=== PATIENT | male | born 1950 | race Caucasian/White ===

== ENCOUNTER 2017-01-28 17:33 | Inpatient (IN) | payer OTHER, MEDICAID ==
--- NOTE | 2017-01-28 18:10 | EDPHY ---
H & P Stated Complaint: c/o sob. specialist told pt to call 911 Time Seen by Provider: 01/28/17 18:09 - Personal History Current Tetanus/Diphtheria Vaccine: Unsure Current Tetanus Diphtheria and Acellular Pertussis (TDAP): Unsure - Medical/Surgical History Hx Asthma: No Hx Chronic Respiratory Disease: No Hx Diabetes: No Hx Cardiac Disease: No Hx Renal Disease: No Hx Cirrhosis: No Hx Alcoholism: No Hx HIV/AIDS: No Hx Splenectomy or Spleen Trauma: No Other PMH: pmh: amalosis, - Social History Smoking Status: Never smoked Constitutional: Initial Vital Signs Temperature (C) 36.8 C 01/28/17 17:41 Heart Rate 88 01/28/17 17:41 Respiratory Rate 16 01/28/17 17:41 Blood Pressure 92/65 L 01/28/17 17:41 O2 Sat (%) 95 01/28/17 17:41 O2 Delivery Mode Room Air Allergies/Adverse Reactions: No Known Allergies Allergy (Unverified 01/28/17 17:45) Home Medications: Medication Instructions Recorded Benzonatate 200 mg PO TID 01/28/17 Bumetanide [Bumex (*)] 2 mg PO DAILY 01/28/17 Spironolactone 100 mg PO DAILY 01/28/17 Medical Decision Making - Diagnostics Imaging Results: Imaging Impressions Chest X-Ray 01/28/17 18:18 Impression: 1. Prominent interstitial markings at the lung bases. Consider interstitial edema possibly from fluid overload versus interstitial infiltrates or some fibrotic change. Clinical correlation recommended. Imaging: I viewed and interpreted images myself ED Course/Re-evaluation: CHIEF COMPLAINT: "shortness of breath due to excessive water build up" HISTORY OF PRESENT ILLNESS: The patient is a 67 y/o male, with a history of amyloidosis and ascites, complaining of shortness of breath and peripheral edema worsening over the last 2 days. He has associated chest pressure and his symptoms are aggravated by lying flat. He has had similar symptoms once this year that required hospitalization. He required IV Lasix at that time, but otherwise does not take Lasix regularly. He denies pain, cough, fever, or other complaints. REVIEW OF SYSTEMS: A 10 point review of systems was performed and is negative with the exception of the elements mentioned in the history of present illness. PHYSICAL EXAM: HR, BP, O2 Sat, RR. Temp noted General Appearance: Alert, well hydrated, appropriate, and non-toxic appearing. Head: Atraumatic without scalp tenderness or obvious injury Eyes: Pupils equal, round, reactive to light and accommodation, EOMI, no trauma , no injection. Nose: Atraumatic, no rhinorrhea, clear. Throat: Mucus membranes moist. Neck: Supple, nontender, no lymphadenopathy. Respiratory: No retractions, no distress, no wheezes, and no accessory muscle use. Lungs are clear to auscultation bilaterally. Cardiovascular: Regular rate and rhythm, no murmurs, rubs, or gallops. Good capillary refill all extremities. Gastrointestinal: Abdomen is soft, nontender, non-distended, no masses, no rebound, no guarding, no peritoneal signs. Musculoskeletal: Normal active ROM of all extremities, atraumatic. Pedal edema with chronic venous stasis changes. Neurological: Alert, appropriate, and interactive. Nonfocal neuro exam. Skin: No rashes, good turgor, no nodules on palpation. Past medical history: amyloidosis, ascites, pleural effusion. 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 Chico Ferrer at [facility] DIAGNOSTICS/PROCEDURES/CRITICAL CARE TIME: Chest x-ray: interstitial edema. The 12 lead EKG was interpreted by myself. Sinus mechanism rate 77. See hard copy and/or "tracemaster" electronic copy for interpretation. DIFFERENTIAL DIAGNOSIS: The differential diagnosis for the patient's shortness of breath and hypoxemia included but was not limited to pneumonia, myocardial infarction, acute mountain sickness, high altitude pulmonary edema, congestive heart failure, and pulmonary embolus. MEDICAL DECISION MAKING: This is a 67 y/o male with a history of amyloidosis who presents with a 2-day history of peripheral edema and worsening shortness of breath. He has mild pedal edema bilaterally and a normal lung exam. Plan for IV, labs, chest x-ray, EKG. BNP elevated at 3020. Macrocytic anemia present. Patient will require admission for CHF. Spoke with hospitalist service. Dr. Gutierrez accepts admission. - Data Points Laboratory Results: Laboratory Results 01/28/17 17:50 01/28/17 17:50 01/28/17 01/28/17 17:50 17:50 WBC 5.14 10^3/uL 10^3/uL (3.80-9.50) RBC 3.48 10^6/uL L 10^6/uL (4.40-6.38) Hgb 12.7 g/dL L g/dL (13.7-17.5) Hct 35.7 % L % (40.0-51.0) MCV 102.6 fL H fL (81.5-99.8) MCH 36.5 pg H pg (27.9-34.1) MCHC 35.6 g/dL g/dL (32.4-36.7) RDW 13.8 % % (11.5-15.2) Plt Count 152 10^3/uL 10^3/uL (150-400) MPV 10.5 fL fL (8.7-11.7) Neut % (Auto) 67.8 % % (39.3-74.2) Lymph % (Auto) 14.8 % L % (15.0-45.0) Towns % (Auto) 12.3 % % (4.5-13.0) Eos % (Auto) 3.7 % % (0.6-7.6) Baso % (Auto) 1.0 % % (0.3-1.7) Nucleat RBC Rel Count 0.0 % % (0.0-0.2) Absolute Neuts (auto) 3.49 10^3/uL 10^3/uL (1.70-6.50) Absolute Lymphs (auto) 0.76 10^3/uL L 10^3/uL (1.00-3.00) Absolute Monos (auto) 0.63 10^3/uL 10^3/uL (0.30-0.80) Absolute Eos (auto) 0.19 10^3/uL 10^3/uL (0.03-0.40) Absolute Basos (auto) 0.05 10^3/uL 10^3/uL (0.02-0.10) Absolute Nucleated RBC 0.00 10^3/uL 10^3/uL (0-0.01) Immature Gran % 0.4 % % (0.0-1.1) Immature Gran # 0.02 10^3/uL 10^3/uL (0.00-0.10) Sodium 136 mEq/L mEq/L (134-144) Potassium 4.5 mEq/L mEq/L (3.5-5.2) Chloride 104 mEq/L mEq/L (97-110) Carbon Dioxide 19 mEq/l L mEq/l (22-31) Anion Gap 13 mEq/L mEq/L (8-16) BUN 27 mg/dL H mg/dL (7-23) Creatinine 1.2 mg/dL mg/dL (0.7-1.3) Estimated GFR > 60 Glucose 81 mg/dL mg/dL (70-100) Calcium 9.2 mg/dL mg/dL (8.5-10.4) Troponin I 0.048 ng/mL H ng/mL (0-0.034) NT-Pro-B Natriuret Pep 3020 pg/mL H pg/mL (0-125) Departure - Departure Disposition: [facility] Inpatient Acute Clinical Impression: Macrocytic anemia, Elevated brain natriuretic peptide (BNP) level Congestive heart failure Qualifiers: Congestive heart failure type: unspecified congestive heart failure type Congestive heart failure chronicity: acute on chronic Qualified Code(s): I50.9 - Heart failure, unspecified Amyloidosis Qualifiers: Amyloidosis type: other amyloidosis Qualified Code(s): E85.8 - Other amyloidosis Condition: Fair Report Scribed for: Hair Campos Report Scribed by: Lucero Greenberg Date of Report: 01/28/17 Time of Report: 18:47
[2017-01-28 18:34] LABS: % IMMATURE GRANULYOCYTES 0.4 % (0.0-1.1); ABSOLUTE IMMATURE GRANULOCYTES 0.02 10^3/uL (0.00-0.10); ADD DIFF? NO; ADD MORPH? NO; ADD SCAN? NO; ATYPICAL LYMPHOCYTE FLAG 10 (0-99); FRAGMENT RBC FLAG 0 (0-99); HEMATOCRIT 35.7 % (40.0-51.0); HEMOGLOBIN 12.7 g/dL (13.7-17.5); LEFT SHIFT FLG 0 (0-99); LIPEMIA HEMOLYSIS FLAG 90 (0-99); MEAN CELL HEMOGLOBIN 36.5 pg (27.9-34.1); MEAN CELL HEMOGLOBIN CONCENTR. 35.6 g/dL (32.4-36.7); MEAN CELL VOLUME 102.6 fL (81.5-99.8); MEAN PLATELET VOLUME 10.5 fL (8.7-11.7); PLATELET CLUMPS FLAG 20 (0-99); PLATELET COUNT 152 10^3/uL (150-400); RED BLOOD CELL COUNT 3.48 10^6/uL (4.40-6.38); RED CELL DISTRIBUTION WIDTH 13.8 % (11.5-15.2)
[2017-01-28 18:36] LABS: ANION GAP 13 mEq/L (8-16); CALCIUM 9.2 mg/dL (8.5-10.4); CARBON DIOXIDE 19 mEq/l (22-31); CHLORIDE 104 mEq/L (97-110); CREATININE 1.2 mg/dL (0.7-1.3); GLOMERULAR FILTRATION RATE > 60; GLUCOSE 81 mg/dL (70-100); POTASSIUM 4.5 mEq/L (3.5-5.2); SODIUM 136 mEq/L (134-144)
--- NOTE | 2017-01-28 18:44 | CPEKG ---
Heart Rate: 81 RR Interval: 741 P-R Interval: 156 QRSD Interval: 146 QT Interval: 472 QTC Interval: 548 P [place]: 66 QRS [place]: -41 T Wave [place]: 244 EKG Severity - ABNORMAL ECG - EKG Impression: SINUS RHYTHM EKG Impression: RIGHT BUNDLE BRANCH BLOCK Electronically Signed By: Hair Campos 28-Jan-2017 20:59:28
[2017-01-28 19:20] LABS: TROPONIN I 0.048 ng/mL (0-0.034)
[2017-01-28] MEDS ORDERED: FUROSEMIDE 20 MG/2 ML VIAL IVP ONE (20:14)
[2017-01-28] MEDS ORDERED: ONDANSETRON 4 MG/2 ML VIAL IVP PRN (20:23)
[2017-01-28] MEDS ORDERED: ACETAMINOPHEN 325 MG TAB PO PRN (20:23)
--- NOTE | 2017-01-28 21:03 | GHP ---
[f rep st] HISTORY AND PHYSICAL DATE OF ADMISSION: 01/28/2017 CHIEF COMPLAINT: Edema. HISTORY: The patient is a 67-year-old male with known diastolic dysfunction due to amyloidosis. De spite being compliant with his diuretics, he has had an increase in weight, increasing lower extremi ty edema, and increasing abdominal distention typical of his usual ascites. This has been increasin g for the last 2 days. His legs have gotten more weak with ambulation. He denies any chest pain bu t he has had some shortness of breath. Earlier today, he had a jayro, full syncopal event. He saw blue spots and then fainted. He landed on the carpet and denies any injury from the fall. PAST MEDICAL HISTORY: 1. Amyloidosis status post chemotherapy at [facility], Dr. Miguelangel Lagos. 2. Congestive heart failure and diastolic dysfunction secondary to amyloidosis. 3. Ascites status post paracentesis. 4. Previous acute renal failure requiring acute dialysis. MEDICATIONS: Please see computer record for full detailed list. ALLERGIES: No known drug allergies. SOCIAL HISTORY: No smoking. He drinks 1 pint of beer per day. He lives alone since his karmen haque 3 years ago. He lives in [place], [place], but is currently staying in [place] for the amyloido sis treatment at [facility], which is 1 of only 3 locations in the [facility] that offer s this treatment. 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 He has 2 daughters, one lives in [facility], the other one lives in [place]. He has not told them that he is ill because he does not want them to worry about him. Requested code status is full. REVIEW OF SYSTEMS: Complete review of systems obtained. Review of systems is negative regarding co nstitutional, HEENT, GI, pulmonary, cardiovascular, , hematology, skin, musculoskeletal, endocrine , psych, except for positives and negatives as noted in HPI. FAMILY HISTORY: Reviewed and noncontributory to the presenting complaint. PHYSICAL EXAMINATION: GENERAL: Well-developed, well-nourished male, in no acute distress. VITAL S IGNS: Temperature is 36.8, pulse 88, blood pressure 92/65, saturating 95% on room air. EYES: Norm al conjunctivae. Pupils reactive to light. ENT: Normal ears and nose. Hearing intact. Normal te eth. Oropharynx moist. NECK: Trachea midline. No thyromegaly. CHEST: Normal respiratory effort . LUNGS: Mostly clear to auscultation bilaterally. Maybe some faint rales in the bases. CARDIOVASCULAR: Regular rate, rhythm. No murmur. 2+ to 3+ l ower extremity edema. ABDOMEN: Soft, nontender. No hepatosplenomegaly. Duep-bz-jqjqrydf ascites possible. SKIN: Warm, dry, intact without rash. MUSCULOSKELETAL: No cyanosis, clubbing. Strengt h 5/5 upper and lower extremities. NEURO: Cranial nerves intact. Normal sensation to light touch. PSYCH: Alert and oriented x3. Normal affect. Normal judgment. Normal memory. LABORATORY AND X-RAY DATA: White count 5.14, hematocrit 35.7, platelets 152, MCV is 102.6, platelet s 136. Potassium 4.5, chloride 104, bicarb 19, BUN 27, creatinine 1.2, glucose 81. Troponin 0.048. BNP is 3020. EKG viewed by me. My personal interpretation is normal sinus rhythm, right bundle b ranch block. No old EKGs for comparison. Chest x-ray shows mild congestive heart failure. I spoke with Dr. Hair Campos. He gave a dose of IV Lasix in the emergency room. ASSESSMENT/PLAN: 1. [id number] diastolic congestive heart failure secondary to amyloidosis. Will continue IV Lasix and oral spironolactone. 2. Amyloidosis status post chemotherapy at [facility]. He is hoping for regression of the amyloid build up over the next 18 months. 3. Syncope. We will watch him on telemetry and check an echocardiogram. Continue serial troponins to see whether a significant elevation occurs. We will check a TSH. 4. Ascites. Patient requests paracentesis if significant ascites is found as this gave him rapid r elief in the past. Will check an abdominal ultrasound. CODE STATUS: Full. ADMISSION STATUS: 1. Will start with an observation admission and reevaluate in the morning whether or not more prolo nged hospitalization is required. 2. DVT prophylaxis. With his history of amyloidosis, I am a little worried putting him on subcu Lo venox. Will use SCDs. /[id number]/MODL
[2017-01-28] MEDS: BENZONATATE 100 MG CAP PO SCH (22:04)
[2017-01-29 06:10] LABS: % IMMATURE GRANULYOCYTES 0.3 % (0.0-1.1); ABSOLUTE IMMATURE GRANULOCYTES 0.01 10^3/uL (0.00-0.10); ADD DIFF? NO; ADD MORPH? NO; ADD SCAN? NO; ATYPICAL LYMPHOCYTE FLAG 10 (0-99); FRAGMENT RBC FLAG 0 (0-99); HEMATOCRIT 34.7 % (40.0-51.0); LEFT SHIFT FLG 0 (0-99); LIPEMIA HEMOLYSIS FLAG 90 (0-99); MEAN CELL HEMOGLOBIN 35.9 pg (27.9-34.1); MEAN CELL HEMOGLOBIN CONCENTR. 34.6 g/dL (32.4-36.7); MEAN CELL VOLUME 103.9 fL (81.5-99.8); MEAN PLATELET VOLUME 10.7 fL (8.7-11.7); PLATELET CLUMPS FLAG 0 (0-99); PLATELET COUNT 141 10^3/uL (150-400); RED BLOOD CELL COUNT 3.34 10^6/uL (4.40-6.38); RED CELL DISTRIBUTION WIDTH 13.6 % (11.5-15.2)
[2017-01-29] MEDS: BENZONATATE 100 MG CAP PO SCH ×3 (06:13→20:59)
[2017-01-29 06:19] LABS: INR 1.41 (0.83-1.16); PROTIME(PATIENT) 17.2 SEC (12.0-15.0)
[2017-01-29 06:25] LABS: ALANINE AMINOTRANSFERASE 29 IU/L (21-72); ALBUMIN 3.3 g/dL (3.5-5.0); ALKALINE PHOSPHATASE 167 IU/L (38-126); ASPARTATE AMINOTRANSFERASE 35 IU/L (17-59); BILIRUBIN,TOTAL 1.9 mg/dL (0.1-1.4); BILIRUBIN-CONJUGATED 0.7 mg/dL (0.0-0.5); BILIRUBIN-UNCONJUGATED 1.2 mg/dL (0.0-1.1); CALCIUM 9.2 mg/dL (8.5-10.4); CARBON DIOXIDE 21 mEq/l (22-31); CHLORIDE 108 mEq/L (97-110); CREATININE 1.2 mg/dL (0.7-1.3); GLOMERULAR FILTRATION RATE > 60; GLUCOSE 87 mg/dL (70-100); SODIUM 138 mEq/L (134-144); TOTAL PROTEIN 6.5 g/dL (6.3-8.2)
[2017-01-29 06:34] LABS: ANION GAP 9 mEq/L (8-16); POTASSIUM 4.1 mEq/L (3.5-5.2)
[2017-01-29 06:35] LABS: TROPONIN I 0.054 ng/mL (0-0.034)
[2017-01-29] MEDS: FUROSEMIDE 20 MG/2 ML VIAL IVP SCH ×2 (09:09→17:07)
--- NOTE | 2017-01-29 10:22 | ECHO ---
[id number] + + [address] : : [place] [address] : : [phone] + Adult Echocardiographic Report + -----+ :Name: ANUPAMA MALDONADO GStudy Date: 01/29/2017 07:49 AM : : Hospital Admission Number: [id number] Location : 206: :: 1950 Gender: Male Height: 73 in : :Age: 67 yrs Race: WH Weight: 165 lb : :Reason For Study: Eval LV Fx : : BSA: 2.0 meters2 : :History: SOB : + -----+ MMode/2D Measurements \T\ Calculations IVSd: 1.4 cm LVIDd: 4.6 cm FS: 45.1 % Ao root diam: 3.2 cm LVPWd: 1.4 cm LVIDs: 2.5 cm EDV(Teich): 97.4 ml ACS: 2.0 cm ESV(Teich): 22.9 ml EF(Teich): 76.5 % Normal Measurement Values: + + :LVIDd (3.5-5.7cm) IVSd (0.6-1.1cm) LVPWd (0.6-1.1cm) Aortic Root (2.0-3.7cm)Left Atrium (1.5-4.0cm): :LV Vol(d) (76-115ml) LV Vol(s) (29-48ml) Ejec Fraction (50-65%)PV Sonido (0.6- 1.2m/s) TV Sonido (0.4-1.0m/s) : :MV E Sonido (0.8-1.0m/s)MV A Sonido (0.3-1.0m/s)LVOT Sonido (0.7-1.2m/s) Asc Ao Sonido ( 0.9-1.8m/s) : + + Doppler Measurements \T\ Calculations MV E max soindo: Ao V2 max: LV V1 max: PA V2 max: 47.4 cm/sec 124.9 cm/sec 118.0 cm/sec 58.4 cm/sec MV A max sonido: Ao max PG: LV V1 max PG: PA max P.6 cm/sec 6.2 mmHg 5.6 mmHg 1.4 mmHg MV E/A: 1.4 TR max sonido: 256.5 cm/sec TR max P.3 mmHg RAP systole: 10.0 mmHg RVSP(TR): 36.3 mmHg Left Ventricle The left ventricle is normal in size. There is moderate concentric left ventricular hypertrophy. The left ventricular ejection fraction is normal. Ejection Fraction = 70%. There is Doppler evidence for diastolic dysfunction. Right Ventricle The right ventricle is normal size. Atria The left atrium is moderately dilated. The Left Atrial Volume is 43 ml/m2. The right atrium is mildly dilated. Mitral Valve The mitral valve is normal in structure and function. There is no evidence of mitral valve prolapse. There is no mitral valve stenosis. There is no mitral regurgitation noted. Tricuspid Valve Normal tricuspid valve. There is trace to mild tricuspid regurgitation. Right ventricular systolic pressure is 37mmHg. Aortic Valve The aortic valve is not well seen but appears trileaflet. There is no aortic stenosis. There is no aortic insufficiency. Pulmonic Valve The pulmonic valve is not well visualized. There is no pulmonic valvular regurgitation. Great Vessels The aortic root is normal size. Pericardium/Pleural There is no pericardial effusion. Conclusion A complete two-dimensional transthoracic echocardiogram was performed (2D, M-mode, Doppler and color flow Doppler). 1. The left ventricle is normal in size. There is moderate concentric left ventricular hypertrophy. Ejection Fraction = 70%. The myocardium has a speckled pattern consider amyloid. 2. There is Doppler evidence for diastolic dysfunction. 3. The left atrium is moderately dilated. 4. The right atrium is mildly dilated. 5. The mitral valve is normal in structure and function. 6. The aortic valve is not well seen but appears trileaflet. There is no aortic stenosis. There is no aortic insufficiency. 7. Right ventricular systolic pressure is 37mmHg. Final Reading Physician: Dilip Martínez MD electronically signed on 01/29/2017 10:20 AM Ordering Physician: Isabel Gutierrez Performed By: Toño Sarmiento, CS
[2017-01-29] MEDS: SPIRONOLACTONE 50 MG TAB PO SCH (11:00)
--- NOTE | 2017-01-29 12:12 | HOSPPROG ---
Hospitalist Progress Note Assessment/Plan: 67 yo M with PMH of amyloidosis and associated chronic diastolic heart failure admitted with increasing lower extremity edema and syncope # acute on chronic diastolic heart failure: in the setting of underlying amyloidosis. Echo showing no significant valvular disease and preserved EF. Clinically improving on IV lasix. Has required paracentesis in the past but currently on personal review of abd US only noted to have mild to moderate ascites. Will continue IV lasix again today. 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 Has been hypotensive and ? related orthostatic hypotension. Will continue to monitor # systemic amyloidosis: he is currently being treated at [facility] and undergoing chemotherapy for this, he reports significant improvement in his FLC # ascites: has been significant in the past and requiring paracentesis, currently only mild to moderate. On imaging liver size is normal, mild elevated bili and alk phos. Amyloid involvement of the liver as well as chf contributing # dispo: likely dc in am, will need another 24 hours in house for further diuresis and monitoring of BP Patient new to my care. Old records reviewed and summarized as above. Subjective: no significant overnight events, patient currently feeling better than yesterday but still quite weak with walking around and still feels legs/ abdomen are more swollen than usual Objective: Vital Signs Temp Pulse Resp BP Pulse Ox 36.6 C 80 18 93/55 L 92 01/29/17 11:54 01/29/17 11:54 01/29/17 11:54 01/29/17 11:54 01/29/17 11:54 Laboratory Results 01/29/17 05:50 01/29/17 05:50 01/28/17 01/29/17 01/30/17 05:59 05:59 05:59 Intake Total 500 Balance 500 PT 17.2 SEC (12.0-15.0) H 01/29/17 05:50 INR 1.41 (0.83-1.16) H 01/29/17 05:50 awake alert chronically ill appearing anicteric op clear rrr distant no mrg cta with scant rll crackles distended, soft, bs+, nt 1+ ble edema ble thickened skin/hyperpigmented otherwise w/d/wp oriented appropriate - Time Spent With Patient Time Spent with Patient: greater than 35 minutes Time Spent with Patient: Greater than 35 minutes spent on this patients care, greater than 50% of time spent counseling, educating, and coordinating care regarding the above mentioned plan. ICD10 Worksheet Patient Problems: Problems Problem Status Onset Congestive heart failure Acute Macrocytic anemia Acute Elevated brain natriuretic peptide (BNP) level Acute Amyloidosis Acute
[2017-01-30] MEDS: BENZONATATE 100 MG CAP PO SCH ×3 (08:50→20:11)
[2017-01-30] MEDS: FUROSEMIDE 20 MG/2 ML VIAL IVP SCH (09:57)
[2017-01-30] MEDS: SPIRONOLACTONE 50 MG TAB PO SCH (10:04)
[2017-01-30] MEDS ORDERED: FUROSEMIDE 20 MG/2 ML VIAL IVP ONE (10:05)
--- NOTE | 2017-01-30 10:31 | HOSPPROG ---
Hospitalist Progress Note Assessment/Plan: 67 yo M with PMH of amyloidosis and associated chronic diastolic heart failure admitted with increasing lower extremity edema and syncope # acute on chronic diastolic heart failure: in the setting of underlying amyloidosis. Echo showing no significant valvular disease and preserved EF. Clinically improving on IV lasix and down 3kg but patient notes that he does not feel much better yet. On exam, abdomen is less distended, LE edema stable to improved, not requiring supplemental o2. Will change IV lasix to tid so long as bp tolerates # hypotension: in the setting of chronic diastolic heart failure/amyloidosis, ascites and likely largely chronic. He has been asymptomatic. Will continue diuresis so long as bp remains stable. Will monitor renal function. 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 Has been hypotensive and likely related orthostatic hypotension. Will continue to monitor closely given tenuous fluid status # systemic amyloidosis: he is currently being treated at [facility] and undergoing chemotherapy for this, he reports significant improvement in his FLC. Will continue care there after dc. # ascites: has been significant in the past and requiring paracentesis, currently only mild to moderate. On imaging liver size is normal, mild elevated bili and alk phos. Amyloid involvement of the liver as well as chf contributing # dispo: suspect patient will be ready for dc on 01/31 so long as fluid status improved and no issues with bp, high risk medications including IV lasix require IP stay Subjective: no significant overnight events. BP was low overnight but patient not symptomatic, currently notes that he feels as if he still has too much fluid on--feels tired, abdomen swollen Objective: Vital Signs Temp Pulse Resp BP Pulse Ox 36.6 C 87 16 90/59 L 90 L 01/30/17 08:00 01/30/17 08:00 01/30/17 08:00 01/30/17 08:00 01/30/17 08:00 01/29/17 01/30/17 01/31/17 05:59 05:59 05:59 Intake Total 680 Output Total 1200 200 Balance -520 -200 PT 17.2 SEC (12.0-15.0) H 01/29/17 05:50 INR 1.41 (0.83-1.16) H 01/29/17 05:50 awake alert chronically ill appearing anicteric op clear rrr distant no mrg cta with scant rll crackles distended, soft, bs+, nt 1+ ble edema ble thickened skin/hyperpigmented otherwise w/d/wp oriented appropriate ICD10 Worksheet Patient Problems: Problems Problem Status Onset Amyloidosis Acute Chronic Disease Mgmt/Transitional Care Acute Congestive heart failure Acute Elevated brain natriuretic peptide (BNP) level Acute Macrocytic anemia Acute
[2017-01-30 10:35] LABS: ANION GAP 11 mEq/L (8-16); CALCIUM 9.2 mg/dL (8.5-10.4); CARBON DIOXIDE 22 mEq/l (22-31); CHLORIDE 103 mEq/L (97-110); CREATININE 1.2 mg/dL (0.7-1.3); GLOMERULAR FILTRATION RATE > 60; GLUCOSE 100 mg/dL (70-100); POTASSIUM 4.4 mEq/L (3.5-5.2); SODIUM 136 mEq/L (134-144)
[2017-01-30] MEDS ORDERED: FUROSEMIDE 20 MG/2 ML VIAL IVP SCH (16:00)
[2017-01-31] MEDS: FUROSEMIDE 20 MG/2 ML VIAL IVP SCH ×4 (00:13→17:05)
[2017-01-31 04:32] LABS: ANION GAP 9 mEq/L (8-16); CALCIUM 9.5 mg/dL (8.5-10.4); CARBON DIOXIDE 23 mEq/l (22-31); CHLORIDE 99 mEq/L (97-110); CREATININE 1.5 mg/dL (0.7-1.3); GLOMERULAR FILTRATION RATE 47; GLUCOSE 88 mg/dL (70-100); POTASSIUM 4.7 mEq/L (3.5-5.2); SODIUM 131 mEq/L (134-144)
[2017-01-31] MEDS: BENZONATATE 100 MG CAP PO SCH ×3 (08:28→21:47)
[2017-01-31] MEDS: SPIRONOLACTONE 50 MG TAB PO SCH (08:28)
--- NOTE | 2017-01-31 17:47 | HOSPPROG ---
Hospitalist Progress Note Assessment/Plan: 67 yo M with PMH of amyloidosis and associated chronic diastolic heart failure admitted with increasing lower extremity edema and syncope # acute on chronic diastolic heart failure: in the setting of underlying amyloidosis. Echo showing no significant valvular disease and preserved EF. Clinically improving on IV lasix and down 3kg with abdomen less distended and less sob but still not feeling quite back to baseline and now with increase in creatinine. Will hold lasix given prema and ask for cardiology to evaluate in am. # hypotension: in the setting of chronic diastolic heart failure/amyloidosis, ascites and likely largely chronic. He has been asymptomatic but continues to be low # prema: bump in creatinine in the setting of diuresis as above as well as prolonged hypotension. 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 Has been hypotensive and likely related orthostatic hypotension. Will continue to monitor closely given tenuous fluid status # systemic amyloidosis: he is currently being treated at [facility] and undergoing chemotherapy for this, he reports significant improvement in his FLC. Will continue care there after dc. # ascites: has been significant in the past and requiring paracentesis, currently only mild to moderate. On imaging liver size is normal, mild elevated bili and alk phos. Amyloid involvement of the liver as well as chf contributing # dispo: IP status, will likely be ready for dc in coming 1-2 days Subjective: no significant overnight events, patient feels as if he is not yet back to his normal volume status--abdomen still distended and still with swelling in his legs Objective: Vital Signs Temp Pulse Resp BP Pulse Ox 36.4 C 86 16 82/56 L 92 01/31/17 12:00 01/31/17 12:00 01/31/17 12:00 01/31/17 12:00 01/31/17 12:00 Laboratory Results 01/31/17 03:39 01/30/17 01/31/17 02/01/17 05:59 05:59 05:59 Intake Total 680 650 Output Total 1200 1200 850 Balance -520 -550 -850 PT 17.2 SEC (12.0-15.0) H 01/29/17 05:50 INR 1.41 (0.83-1.16) H 01/29/17 05:50 awake alert chronically ill appearing anicteric op clear rrr distant no mrg cta with scant rll crackles distended, soft, bs+, nt 1+ ble edema ble thickened skin/hyperpigmented otherwise w/d/wp oriented appropriate ICD10 Worksheet Patient Problems: Problems Problem Status Onset Amyloidosis Acute Chronic Disease Mgmt/Transitional Care Acute Congestive heart failure Acute Elevated brain natriuretic peptide (BNP) level Acute Macrocytic anemia Acute
[2017-02-01 04:11] LABS: % IMMATURE GRANULYOCYTES 0.3 % (0.0-1.1); ABSOLUTE IMMATURE GRANULOCYTES 0.02 10^3/uL (0.00-0.10); ADD DIFF? NO; ADD MORPH? NO; ADD SCAN? NO; ATYPICAL LYMPHOCYTE FLAG 20 (0-99); FRAGMENT RBC FLAG 0 (0-99); HEMATOCRIT 34.9 % (40.0-51.0); HEMOGLOBIN 12.4 g/dL (13.7-17.5); LEFT SHIFT FLG 0 (0-99); LIPEMIA HEMOLYSIS FLAG 90 (0-99); MEAN CELL HEMOGLOBIN 36.4 pg (27.9-34.1); MEAN CELL HEMOGLOBIN CONCENTR. 35.5 g/dL (32.4-36.7); MEAN CELL VOLUME 102.3 fL (81.5-99.8); MEAN PLATELET VOLUME 10.5 fL (8.7-11.7); PLATELET CLUMPS FLAG 0 (0-99); PLATELET COUNT 156 10^3/uL (150-400); RED BLOOD CELL COUNT 3.41 10^6/uL (4.40-6.38); RED CELL DISTRIBUTION WIDTH 13.6 % (11.5-15.2)
[2017-02-01 04:16] LABS: ANION GAP 14 mEq/L (8-16); CALCIUM 9.4 mg/dL (8.5-10.4); CARBON DIOXIDE 24 mEq/l (22-31); CHLORIDE 96 mEq/L (97-110); CREATININE 1.6 mg/dL (0.7-1.3); GLOMERULAR FILTRATION RATE 43; GLUCOSE 107 mg/dL (70-100); POTASSIUM 4.5 mEq/L (3.5-5.2); SODIUM 134 mEq/L (134-144)
[2017-02-01] MEDS: BENZONATATE 100 MG CAP PO SCH (09:20)
[2017-02-01] MEDS: SPIRONOLACTONE 50 MG TAB PO SCH (09:20)
--- NOTE | 2017-02-01 10:19 | HOSPPROG ---
Hospitalist Progress Note Assessment/Plan: 67 yo M with PMH of amyloidosis and associated chronic diastolic heart failure admitted with increasing lower extremity edema and syncope.He has been followed at the [facility] for many years. I spoke with the doctor there. She feels that he is palliative status at this point. He has had multiple syncopal episodes in the past and they have opted not to place a pacemaker. She also told me that his EKG is unchanged. Patient new to me and chart reviewed # acute on chronic diastolic heart failure in the setting of amyloidosis. Echocardiogram was reviewed. Clinically improving slowly however did have a slight bump in his creatinine. * Resume his Bumex and Aldactone on at home doses * Continue daily weights * No further diagnostic testing at this time. He plans on following up in the [facility] on Friday # hypotension: This is likely secondary to his volume status intravascularly at the time of admission. He has a history of syncope previously and that has always been due to his volume status. Has improved and will continue to monitor here in the hospital. # acute on chronic kidney failure, patient's creatinine is typically elevated at baseline when he is euvolemic. The [facility] stated that a creatinine of 1.6 is improved for him a so he likely needs an elevated creatinine to establish usually me. * Resume his home diuretic dose and continue to monitor creatinine. # syncope: This is a chronic issue for him and he has been worked up thoroughly at the [facility]. They have opted not to pursue pacemaker placement given his overall cardiac disease. He is essentially palliative status and is on medications for symptomatic management only. 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 # ascites Disposition: DC on Friday after her ongoing diuresis here in the hospital and management of electrolytes and renal function. He will follow up with Cardiology Clinic Friday. Discussed in detail with Dr. Mohan as well as the deputy sheriff generalist at [facility] Subjective: Patient looks comfortable. He continues to complain of fluid overload especially in his scrotum. No chest pain no shortness of breath Objective: Vital Signs Temp Pulse Resp BP Pulse Ox 36.6 C 78 14 105/68 92 02/01/17 07:06 02/01/17 07:06 02/01/17 07:06 02/01/17 07:06 02/01/17 07:06 Laboratory Results 02/01/17 03:09 02/01/17 03:09 01/31/17 02/01/17 02/02/17 05:59 05:59 05:59 Intake Total 650 300 300 Output Total 1200 1550 325 Balance -550 -1250 -25 PT 17.2 SEC (12.0-15.0) H 01/29/17 05:50 INR 1.41 (0.83-1.16) H 01/29/17 05:50 - Physical Exam Constitutional: no apparent distress, not in pain, chronically ill appearing Eyes: PERRL, anicteric sclera, EOMI Ears, Nose, Mouth, Throat: moist mucous membranes, hearing normal Cardiovascular: regular rate and rhythym Respiratory: no respiratory distress, inspiratory crackles Gastrointestinal: soft, non-tender abdomen Genitourinary: no bladder fullness Skin: warm, No normal color (Mild pallor) Musculoskeletal: No no joint effusions, No muscular tenderness Neurologic: AAOx3 Psychiatric: interacting appropriately ICD10 Worksheet Patient Problems: Problems Problem Status Onset Amyloidosis Acute Chronic Disease Mgmt/Transitional Care Acute Congestive heart failure Acute Elevated brain natriuretic peptide (BNP) level Acute Macrocytic anemia Acute
[2017-02-01] MEDS ORDERED: BUMETANIDE 2 MG TAB PO SCH (10:45)
--- NOTE | 2017-02-01 10:58 | PDCARCONS ---
Cardiology Consult Reason for Consult: Syncope. Heart failure. Chief Complaint: Syncope, heart failure. Requesting Physician: Dr. Abby Newman History of Present Illness: 67-year-old male with history of amyloidosis, amyloid heart disease with diastolic dysfunction, had been having worsening pedal and scrotal edema over the last several days. He was in his usual state of health except for the worsening heart failure when he had sudden syncope in his apartment. He did not suffer any trauma. He is not sure how long he was unconscious. He was admitted to the hospital here 2 days ago upon recommendation of Dr. Chico Ferrer, his african history professor at the [facility]. He has had increased dose of diuretics and from the heart failure standpoint is getting better. I was asked to consult on the patient because of his episode of syncope. History Information - Allergies/Home Medication List Allergies/Adverse Reactions: No Known Allergies Allergy (Unverified 01/28/17 17:45) Home Medications: Benzonatate 200 mg PO TID 01/28/17 [Last Taken 01/21/17] Bumetanide [Bumex (*)] 2 mg PO DAILY 01/28/17 [Last Taken 01/27/17] Spironolactone 100 mg PO DAILY 01/28/17 [Last Taken 01/27/17] - Social History Smoking Status: Never smoked Physical Exam Temp Pulse Resp BP Pulse Ox 36.6 C 78 14 105/68 92 02/01/17 07:06 02/01/17 07:06 02/01/17 07:06 02/01/17 07:06 02/01/17 07:06 O2 (L/minute) 2 Constitutional: not in pain, chronically ill appearing Eyes: PERRL, EOMI Ears, Nose, Mouth, Throat: moist mucous membranes, hearing normal ( He) Cardiovascular: regular rate and rhythym, systolic murmur ( A) Respiratory: respiratory distress (mild) Gastrointestinal: distension Genitourinary: no bladder fullness Skin: warm Neurologic: AAOx3 Psychiatric: interacting appropriately, not anxious, thought process linear Lab and Imaging 02/01/17 03:09 02/01/17 03:09 WBC 5.90 10^3/uL (3.80-9.50) 02/01/17 03:09 RBC 3.41 10^6/uL (4.40-6.38) L 02/01/17 03:09 Hgb 12.4 g/dL (13.7-17.5) L 02/01/17 03:09 Hct 34.9 % (40.0-51.0) L 02/01/17 03:09 MCV 102.3 fL (81.5-99.8) H 02/01/17 03:09 MCH 36.4 pg (27.9-34.1) H 02/01/17 03:09 MCHC 35.5 g/dL (32.4-36.7) 02/01/17 03:09 RDW 13.6 % (11.5-15.2) 02/01/17 03:09 Plt Count 156 10^3/uL (150-400) 02/01/17 03:09 MPV 10.5 fL (8.7-11.7) 02/01/17 03:09 Neut % (Auto) 60.8 % (39.3-74.2) 02/01/17 03:09 Lymph % (Auto) 18.5 % (15.0-45.0) 02/01/17 03:09 White % (Auto) 14.1 % (4.5-13.0) H 02/01/17 03:09 Eos % (Auto) 5.1 % (0.6-7.6) 02/01/17 03:09 Baso % (Auto) 1.2 % (0.3-1.7) 02/01/17 03:09 Nucleat RBC Rel Count 0.0 % (0.0-0.2) 02/01/17 03:09 Absolute Neuts (auto) 3.59 10^3/uL (1.70-6.50) 02/01/17 03:09 Absolute Lymphs (auto) 1.09 10^3/uL (1.00-3.00) 02/01/17 03:09 Absolute Monos (auto) 0.83 10^3/uL (0.30-0.80) H 02/01/17 03:09 Absolute Eos (auto) 0.30 10^3/uL (0.03-0.40) 02/01/17 03:09 Absolute Basos (auto) 0.07 10^3/uL (0.02-0.10) 02/01/17 03:09 Absolute Nucleated RBC 0.00 10^3/uL (0-0.01) 02/01/17 03:09 Immature Gran % 0.3 % (0.0-1.1) 02/01/17 03:09 Immature Gran # 0.02 10^3/uL (0.00-0.10) 02/01/17 03:09 PT 17.2 SEC (12.0-15.0) H 01/29/17 05:50 INR 1.41 (0.83-1.16) H 01/29/17 05:50 Sodium 134 mEq/L (134-144) 02/01/17 03:09 Potassium 4.5 mEq/L (3.5-5.2) 02/01/17 03:09 Chloride 96 mEq/L (97-110) L 02/01/17 03:09 Carbon Dioxide 24 mEq/l (22-31) 02/01/17 03:09 Anion Gap 14 mEq/L (8-16) 02/01/17 03:09 BUN 45 mg/dL (7-23) H 02/01/17 03:09 Creatinine 1.6 mg/dL (0.7-1.3) H 02/01/17 03:09 Estimated GFR 43 02/01/17 03:09 Glucose 107 mg/dL (70-100) H 02/01/17 03:09 Calcium 9.4 mg/dL (8.5-10.4) 02/01/17 03:09 Magnesium 2.0 mg/dL (1.6-2.3) 01/31/17 03:39 Total Bilirubin 1.9 mg/dL (0.1-1.4) H 01/29/17 05:50 Conjugated Bilirubin 0.7 mg/dL (0.0-0.5) H 01/29/17 05:50 Unconjugated Bilirubin 1.2 mg/dL (0.0-1.1) H 01/29/17 05:50 AST 35 IU/L (17-59) 01/29/17 05:50 ALT 29 IU/L (21-72) 01/29/17 05:50 Alkaline Phosphatase 167 IU/L (38-126) H 01/29/17 05:50 Troponin I 0.054 ng/mL (0-0.034) H 01/29/17 05:50 NT-Pro-B Natriuret Pep 3020 pg/mL (0-125) H 01/28/17 17:50 Total Protein 6.5 g/dL (6.3-8.2) 01/29/17 05:50 Albumin 3.3 g/dL (3.5-5.0) L 01/29/17 05:50 TSH 2.920 uIU/mL (0.465-4.680) 01/29/17 05:50 EKG additional interpertation: normal sinus rhythm, right bundle-branch block, left axis deviation, with QRS duration 150 milliseconds, prolonged QTc interval 530 milliseconds however this is related to QRS prolongation and JT interval is less than 400 milliseconds. Telemetry: Sinus rhythm A/P Assessment: 1. Amyloid heart disease with systemic amyloidosis 2. Unexplained syncope 3. Diastolic congestive heart failure Plan: 67-year-old male presenting with diastolic heart failure related to amyloid heart disease, this is improving with diuretic therapy. His renal function has worsened somewhat and will need to be monitored carefully, we have stopped his Bumex at this time. Spironolactone is being continued. As regards syncope he has prolonged QTC interval however this is related to prolonged QRS interval and the JT interval is less than 400 milliseconds. He has right bundle branch block with a wide QRS duration of 150 milliseconds and also left anterior fascicular block. With his infiltrative heart disease, bradyarrhythmia is a definite concern for his syncope. I have recommended implantation of a dual-chamber pacemaker. However the patient would like to be transferred to the [facility] where all of his african history professor, especially Dr. Chico Ferrer are. I have talked with Dr. Griffith who has accepted the transfer. d.w. Dr. Newman. Total time spent with the patient, coordinating with other physicians, 1 hour.
[2017-02-01 11:47] VITALS: BP 112/69; PULSE 87; RESP 18; TEMP 98.3; O2SAT 91
--- NOTE | 2017-02-01 11:57 | PDIAF ---
- Diagnosis Diagnosis: CHF, syncope, amyloid, renal failure Code Status: Full Code - Medication Management Discharge Medications: Medications to Continue on Transfer Benzonatate 200 mg PO TID 01/28/17 [Last Taken 01/21/17] Bumetanide [Bumex (*)] 2 mg PO DAILY 01/28/17 [Last Taken 01/27/17] Spironolactone 100 mg PO DAILY 01/28/17 [Last Taken 01/27/17] Acetaminophen [Tylenol 325mg (*)] 650 mg PO Q4 PRN #0 tab 02/01/17 [Last Taken Unknown] Discharge Medications: Refer to the Discharge Home Medication list for PRN reason. - Orders Services needed: Registered Nurse, Certified Director Process, Master Card Dealer , Physical Therapy, Occupational Therapy Diet Recommendation: sodium restricted Diet Texture: Regular Texture Diet - Follow Up Care Current Providers and Referrals: Patient,NotPresent [Unknown] - As per Instructions
--- NOTE | 2017-02-01 12:17 | GDS ---
[f rep st] DISCHARGE SUMMARY DISCHARGE DIAGNOSES: 1. Syncope. 2. Congestive heart failure. 3. Amyloidosis. 4. Renal failure. HOSPITAL COURSE: Mr. Fairbanks is a 67-year-old with the above past medical history who has been follo wed snf at the [facility] by Dr. Chico Peralta. He was admitted with worsening fluid overload, including pedal edema and scrotal edema over the several days prior to admission. He had sudden onset syncope in his apartment where he lives alone and was brought in to the hospital for [facility] as well. During his hospitalization, he had increased doses of diuretics and from heart failure standpoint is getting better. Dr. Michael Mohan was consulted and felt that his syncope was worrisome given his bifascicular block on EKG in the setting that there was not obvious cause other than pres umed hypovolemia. Because of the unclear etiology of his syncope and the fact that the patient has been followed snf by Dr. Peralta. It was felt prudent to transfer him to that facility for ongoin g management of his heart failure and syncope since they know him well. Dr. Mohan did speak to the ph ysician acid correction hand, Dr. Gianni Linda, and after long discussion, agreed to accept the patient in [facility]. TRANSFER CONDITION: Stable. He is afebrile. Heart rate 87, blood pressure 112/69, respirations 18 . He is 91% on room air. Creatinine is 1.6. The rest of his electrolytes are within normal limits . He is alert and oriented. Heart is regular. He does have basilar , scrotal edema, and mild pedal edema. DISCHARGE MEDICATIONS: Please see discharge reconciliation form. Followup transfer to inpatient at . Total time spent with the patient on day of discharge and coordination of care is 35 minutes. /[id number]/MODL
== END 2017-02-01 13:11 | disposition short-term general hospital (02) | DRG 292 ==
LOC: F2W 21:14 → OBSVTOIN 01-29 16:04
PROVIDERS: ADMIT Internal Medicine; ATTEND Internal Medicine
DX: I50.33 Acute on chronic diastolic (congestive) heart failure (principal); E85.8 Other amyloidosis; I43 Cardiomyopathy in diseases classified elsewhere; R18.8 Other ascites; I95.9 Hypotension, unspecified; N17.9 Acute kidney failure, unspecified; N18.9 Chronic kidney disease, unspecified; R55 Syncope and collapse
CPT/HCPCS: G0378; J1940